=== PATIENT | male | born 1960 | race Caucasian/White ===

== ENCOUNTER → 2023-04-24 00:08 | Outpatient (REF) | payer MEDICARE, OTHER, SELFPAY | LOC: DHSLP 00:08 | PROVIDERS: ATTENDING PHYSICIAN Internal Medicine Critical Care Medicine; FAMILY PHYSICIAN Family Medicine | DX: G47.33 Obstructive sleep apnea (adult) (pediatric) (principal) | CPT/HCPCS: 95810 ==

== ENCOUNTER → 2023-05-07 | Outpatient (REF) | payer MEDICARE, OTHER, SELFPAY | LOC: DHSLP | PROVIDERS: ATTENDING PHYSICIAN Internal Medicine Critical Care Medicine; FAMILY PHYSICIAN Family Medicine | DX: G47.33 Obstructive sleep apnea (adult) (pediatric) (principal); G47.37 Central sleep apnea in conditions classified elsewhere | CPT/HCPCS: 95811 ==

== ENCOUNTER 2024-11-12 18:13 | Inpatient (IN) | payer MEDICARE, OTHER, SELFPAY ==
[2024-11-12] VITALS (29 sets, daily range): BP systolic 80–183; BP diastolic 29–120; BMI 32.3
[2024-11-12] MEDS: CORDARONE 103 MG IV (16:38)
[2024-11-12] MEDS: DIPRIVAN 60 MG IV (16:59)
[2024-11-12 17:03] LABS: Troponin I 0.079 ng/ml
[2024-11-12 17:04] LABS: Hematocrit 35.8 % (39.0-52.0); Hemoglobin 9.4 g/dL (13.0-18.0); Mean Corp Hgb Conc. 26.3 g/dL (33.0-37.0); Mean Corpuscular Volume 68.2 fL (80.0-94.0); Platelet Count 275 10^3/uL (130-400); Red Cell Dist. Width 23.7 % (11.5-14.5)
[2024-11-12 17:20] LABS: Absolute Neutrophils -Man Diff 6.4 10^3/uL (1.4-6.5)
[2024-11-12 17:21] LABS: Anisocytosis 2+; Normal RBC Morphology No; Platelets Checked Yes
[2024-11-12 17:23] LABS: Hypochromasia 3+; Microcytosis 3+; Poikilocytosis 2+; Polychromasia Slight
[2024-11-12 17:24] LABS: Acanthocytes 1+; Tear Drop Red Blood Cells Occasional; Total Cells Counted 100
--- NOTE | 2024-11-12 17:35 | HPS.HSE ---
Family Physician
-
Family Physician: Matthieu Nixon
Chief Complaint
-
hypoxic
V tach
History of Present Illness
64 year old with PMH for HLD, HTn, hypothyroidism presented to us diaphoretic and sob at home. patient was noted in V tach at home. EMS gave a dose of amio. since he got in the ER, he had couple episodes of V tach and unresponsiveness. patient
intubated in the ER and started on amiodarone. ROS limited as patient is intubated.
admitting for further management.
Medical History
Past Medical History
Past Medical History: Reports Other
Additional Past Medical History:
High cholesterol
Hypertension
Hypothyroidism
Occlusion of the left subclavian artery
Past Surgical History: Reports Other
Additional Past Surgical History:
Coronary artery bypass graft
Tonsillectomy
JIGMAKER-D implantation
Social History
Unable to obtain full social history at this time due to: Patient Intubation
Family History
Family History: Not pertinent
Allergies / Home Medications
Allergies reflects when Allergies were last updated in [facility].
Home Medications with original date entered in [facility]
Allergy/Medication List:
Allergies
Allergy/AdvReac Type Severity Reaction Status Date / Time
latex Allergy Mild Rash Verified 01/13/23 12:37
adhesive tape Allergy Rash Verified 01/13/23 12:37
Home Medications
atorvastatin 80 mg tablet 80 mg PO QPM High Cholesterol 12/20/22
dapagliflozin propanediol 10 mg tablet (Farxiga) 10 mg PO DAILY Heart Failure 12/20/22
eplerenone 25 mg tablet 25 mg PO QPM Heart Failure 12/20/22
ferrous sulfate 325 mg (65 mg iron) tablet 325 mg PO DAILY Supplement 12/20/22
rivaroxaban 20 mg tablet (Xarelto) 20 mg PO QPM Blood Clot Prevention/Tx 12/20/22
vitamin E 268 mg (400 unit) capsule 268 mg PO DAILY Supplement 12/20/22
loratadine 10 mg tablet (Claritin) 10 mg PO DAILY Allergies 12/21/22
bumetanide 1 mg tablet 0.5 mg PO DAILY Heart Failure 11/12/24
levothyroxine 137 mcg tablet (Synthroid) 137 mcg PO DAILY Thyroid 11/12/24
metoprolol succinate 50 mg tablet,extended release 24 hr (Toprol XL) 50 mg PO DAILY Heart Failure 11/12/24
potassium chloride 20 mEq tablet,extended release(part/cryst) 20 meq PO Q48H Electrolyte Repletion 11/12/24
Review of Systems
-
Unable to obtain full review of systems at this time due to: Patient Intubation
Physical Exam
Vital Signs
Vital Signs
Temp Pulse Resp BP Pulse Ox
99.1 F 91 24 111/83 97
11/12/24 16:29 11/12/24 16:29 11/12/24 16:29 11/12/24 16:29 11/12/24 16:29
Physical Exam
General: Well Developed, Well Nourished and No Apparent Distress
HEENT: NormoCephalic, Moist mucous membranes and Atraumatic
Respiratory: Clear
Cardiac: Irregular Rhythm; No Murmur or Rub
GI: Soft, Non Tender, Non Distended and Normal Bowel Sounds; No Organomegaly
Rectal: Deferred by Provider
Musculoskeletal: No Clubbing, No Cyanosis and No Edema
Skin: No Rash
Neuro: Nonfocal/grossly intact
Laboratory Results
-
11/12/24 16:26
Laboratory Results
Total Bilirubin Cancelled 11/12/24 16:26
AST Cancelled 11/12/24 16:26
ALT Cancelled 11/12/24 16:26
Alkaline Phosphatase Cancelled 11/12/24 16:26
Troponin I 0.079 ng/ml H* 08/15/25 16:26
Data Reviewed
-
Diagnostic Radiology: Report Reviewed by me
Lab Data: Labs Reviewed by me
Impression/Plan
-
#V tach arrest
#hxt of paroxysmal atrial fib
-chest x ray with Findings suspicious for congestive heart failure with interstitial and mild pulmonary edema. No evidence of pneumonia. Endotracheal tube tip at the level of the charito; proximal repositioning of 3 cm would be recommended.
-amiodarone drop
-initiated on heparin drip
-NG to suction
-cardiology consulted.
#anemia likely chronic
-hgb at 9.4, no active bleeding
-ctm
-obtain iron panel
-patient on ferrous sulfate as outpatient
#elevated trop NSTEMI
-trop 0.079
-EKG with atrial paced rhythm
-trend trop
# chronic heart failure with reduced EF. EF around 10-15% in 2022
-Monitor strict I/O
-Monitor daily weight
-Monitor renal function and electrolytes
-cardiology following
#Hypothyroidism
-obtain TSH with T4
-on levothyroxine
#DVT prophylaxis
-heparin
#CODE status
-full code
--- NOTE | 2024-11-12 17:47 | W.PN.UPDATE ---
Update Note
Progress Note Update
Called to assist in code situation.
Patient is in critical condition
Briefly, patient brought to the emergency department due to shortness of breath and ventricular tachycardia which was treated with IV amiodarone in the field. Early in his emergency room evaluation he again complained of marked dyspnea and was once
again found to be in ventricular tachycardia and lost consciousness, lost his pulse. Code was called. Resuscitative efforts included external cardioversion of ventricular tachycardia (rates in ventricular tachycardia approximately 160 bpm),
intravenous amiodarone, intravenous epinephrine. With cardioversion she would restore atrial and ventricular pacing with return of pulse but he would have continued salvos of recurrent hemodynamically unstable ventricular tachycardia (monomorphic
by telemetry monitoring) with loss of pulse requiring CPR and external cardioversion.
I interrogated the [employer] CONTROLLER defibrillator and diagnostic show multiple episodes of VT detected today November 12 but no other episodes of VT or VF noted in the arrhythmia log. VT detection is set at 170 bpm. VF detection is set at 210
bpm. I reprogrammed base pacing rate from 60->85 in an attempt to reduce the ventricular ectopy and I change the VT detection rate to 140 with 2 rounds of ATP followed by shock therapy. VF detection and therapy remains 210 bpm and shock therapy.
I also recommended IV lidocaine infusion which was begun while IV amiodarone is being maintained.
With these interventions ventricular arrhythmias have quieted down, at least for the time being.
Critical care time is 35 minutes
[2024-11-12 17:51] LABS: B.E. -17.2 mmol/L; O2 Saturation % 89.1 % (94-98); PCO2 49 mmHg (35-48); PO2 71 mmHg (83-108)
--- NOTE | 2024-11-12 17:53 | ED.GENMED ---
History of Present Illness
General
Chief Complaint: Heart Rate Problem
Source: patient, ambulance crew and other (Brother/family)
Exam Limitations: clinical condition
Time Seen by Provider: 11/12/24 16:27
History of Present Illness
History of Present Illness:
64-year-old male apparently had some diarrhea recently per the brother. Patient's only history of shortness of breath that started earlier today. Medics noted V. tach. He was given 150 mg of amiodarone. On arrival patient's only complaint was
shortness of breath. He was not in V. tach on arrival
Past History
Past History
ED Past Medical History: Arrthythmia, CAD, CHF, HTN, [place], Valvular disease, Psychiatric (Anxiety) and Other (Severe cardiomyopathy with an ejection fraction of 10 to 15%, severe obstructive sleep apnea, left bundle branch block,)
ED Past Surgical History: Cardiac and Tonsilectomy
Social History
Tobacco: Former smoker
Alcohol: None
Drug: None
Personal:
Living: with family
Family History
Family History: Other
Review of Systems
Review of Systems
All Other Systems: Not applicable
Constitutional: Denies fever
Respiratory: Reports trouble breathing
Phy Exam
Physical Exam
Physical Exam:
GENERAL: Alert and oriented. Mild tachypnea
EYE: Orbits normal.
NECK: Supple, no significant adenopathy.
ENT: Pharynx without erythema
CARDIAC: Regular rate and rhythm without any obvious murmurs. Pacer
LUNGS: Coarse rales and rhonchi
ABDOMEN: Soft, without focal tenderness or distention
NEUROLOGICAL: Alert and oriented , grossly non-focal
SKIN: Warm and dry, no rash or lesion, no discoloration, skin intact.
MUSCULOSKELETAL: Mild edema bilaterally
PSYCH: Normal and appropriate interaction.
Course
Orders/Labs/Results
Orders:
Orders
11/12/24 16:24
Electrocardiogram (*1) Urgent
Reason for Study: Syncope
EKG- Treatment ONCE
11/12/24 16:26
Complete Blood Count/With Diff Urgent
Manual Differential Urgent
Troponin I Urgent
11/12/24 16:37
Amiodarone [Cordarone] 150 mg .ROUTE .STK-MED ONE
11/12/24 16:46
Propofol 1,000,000 Mcg/100 ml [Diprivan] 1,000,000 mcg in 100 ml .ROUTE .STK-MED
11/12/24 16:48
Propofol [Diprivan] 60 mg IV NOW STA
11/12/24 16:53
CXR Port [CR Chest Portable - 1 View] Urgent
Comment:
Reason For Exam: post intubation
Reason Study Needs to be Portable: Patient Unstable
11/12/24 16:56
Amiodarone [Cordarone] 150 mg Dextrose 5%/Water 100 ml [D5w] 100 ml IV NOW
11/12/24 17:05
Basic Metabolic Panel Urgent
11/12/24 17:38
Arterial Blood Gas Urgent
%Oxygen/Room Air: 0
11/12/24 17:56
Admit/Transfer Patient As Directed
Co-Sign Provider:
Level of Care: Inpatient admission
Assign to:: ICU
Physician / Group: rishabh contreras
Diagnosis: v tach arrest
Reason for Hospitalization: v tach arrest
Expected length of stay greater than two midnights?: Yes
ELOS- Estimated Length of Stay in days: 3
I certify the patient meets the requirements for IP care: Yes
PRN Pain Medication Management As Directed
May give lesser potent ordered pain med per pt: Yes
preference::
Protocol:: Medication orders for pain may be administered in a
manner that supports deferring to patient preference
when the pt is:
- Requesting an ordered lesser potent pain medication.
Least to most potent pain medications are defined
as: acetaminophen < NSAID < tramadol < opioids
(morphine, oxycodone, hydromorphone).
- Requesting a lesser dose of the same medication IF
ORDERED.
- Requesting a less intrusive route of administration
if both routes are prescribed by the provider (PO <
IV).
11/12/24 17:58
Code Status As Directed
Resuscitation Status: Full Code
11/12/24 17:[address] Non Medication Order As Directed
Physician Order: PTT 6 hours after initial start of Heparin infusion
11/12/24 18:00
Heparin 71149 Units/250 ml 25,000 units in 250 ml IV PER PROTOCOL
Weight to be used for heparin protocol in kilograms (kg):: 105
Protocol:: Cardiac Tx/Acute Coronary
PTT Goal Range to be used:: PTT 73 to 111 seconds
Order type:: Initial
INITIAL Infusion Dose (UNITS/KG/hr) & then follow protocol:: 12 units/kg/hr
Infusion Dose in UNITS/hr & then follow protocol (UNITS/hr):: 1,000
INFUSION RATE in mL/hr & then follow protocol (mL/hr):: 10
PTT less than or equal to 64 seconds:: Increase rate by 200 units/hr (+ 2 mL/hr)
PTT 64.1 to 72.9 seconds:: Increase rate by 100 units/hr (+ 1 mL/hr)
PTT 73 to 111 seconds:: Target Range. No change in rate.
PTT 111.1 to 130.9 seconds:: Decrease rate by 100 units/hr (- 1 mL/hr)
PTT 131 to 199.9 seconds:: HOLD for 1 hr. Then decrease rate by 200 units/hr (- 2 mL/hr)
PTT greater than or equal to 200 seconds:: HOLD for 2 hrs & Notify Provider. Then decrease by 200 units/hr (-
2 mL/hr)
Lab follow-up:: Each change, PTT q6h until 2 consecutive are therapeutic. Then PTT
daily.
11/12/24 18:02
PTT Urgent
Comment: Obtain baseline before beginning heparin infusion if not already collected
Heparin Protocol- PTT Orders As Directed
PTT per Heparin protocol: -Obtain CBC and baseline PTT - if not already collected.
-Obtain PTT 6 hours from start of infusion. Then, every 6 hours until 2 consecutive
PTT's are therapeutic. Then, PTT Daily.
-With each rate change, obtain PTT every 6 hours until 2 consecutive PTT's are
therapeutic. Then, PTT Daily.
NG Tube [Gastrointestinal Tubes] As Directed
To suction?: Yes
Type of suction: Low intermittent
Notify MD As Directed
Notify physician if: PTT is greater than or equal to 200.
11/12/24 18:15
Heparin 91589 Units/250 ml 25,000 units in 250 ml IV PER PROTOCOL
Weight to be used for heparin protocol in kilograms (kg):: 105
Protocol:: Cardiac Tx/Acute Coronary
PTT Goal Range to be used:: PTT 73 to 111 seconds
Order type:: Initial
INITIAL Infusion Dose (UNITS/KG/hr) & then follow protocol:: 12 units/kg/hr
Infusion Dose in UNITS/hr & then follow protocol (UNITS/hr):: 1,000
INFUSION RATE in mL/hr & then follow protocol (mL/hr):: 10
PTT less than or equal to 64 seconds:: Increase rate by 200 units/hr (+ 2 mL/hr)
PTT 64.1 to 72.9 seconds:: Increase rate by 100 units/hr (+ 1 mL/hr)
PTT 73 to 111 seconds:: Target Range. No change in rate.
PTT 111.1 to 130.9 seconds:: Decrease rate by 100 units/hr (- 1 mL/hr)
PTT 131 to 199.9 seconds:: HOLD for 1 hr. Then decrease rate by 200 units/hr (- 2 mL/hr)
PTT greater than or equal to 200 seconds:: HOLD for 2 hrs & Notify Provider. Then decrease by 200 units/hr (-
2 mL/hr)
Lab follow-up:: Each change, PTT q6h until 2 consecutive are therapeutic. Then PTT
daily.
11/12/24 18:45
Acetaminophen [Tylenol/Feverall] 650 mg RECTAL Q4HPRN PRN
Bisacodyl [Dulcolax] 10 mg RECTAL [id number] PRN
Docusate W/Senna [Senokot-S] 1 tablet PO BIDPRN PRN
Polyethylene Glycol Powder [Miralax] 17 grams PO DAILYPRN PRN
11/12/24 18:45
CARDIOLOGY CONSULT Routine
Consulting Provider: Jamin Hernandez
Was physician already notified: Yes
Family Consultant Consult Routine
Consulting Provider: Allison Cannon
Was physician already notified: Yes
Activity As Directed
Activity Level: As Tolerated
Intake/ Output As Directed
Frequency: Per unit guidelines
Pneumatic Compression Sleeves As Directed
Type: Knee high
Vital Signs As Directed
Frequency: Per unit guidelines
Weight As Directed
Frequency: Daily
DX Deep Vein Thrombosis Video Routine
11/12/24 19:00
Flush (0.9% Sodium Chloride) [Flush (Nss)] See Dose Instructions IV PER PROTOCOL
11/12/24 22:30
Troponin I Q6H
11/13/24 04:30
Troponin I Q6H
11/13/24 Breakfast
NPO
Allow oral meds: No
Allow clear liquids: No
Basic Metabolic Panel IN AM
Cardiovascular Evaluation IN AM
Complete Blood Count/No Diff IN AM
Ferritin IN AM
Iron IN AM
TSH Reflex To Free T4 IN AM
Total Iron Binding IN AM
Vitamin B12 IN AM
11/14/24 06:00
Basic Metabolic Panel IN AM
Complete Blood Count/No Diff IN AM
Complete Blood Count/No Diff Q2D
Comment: Notify MD if platelet count is <130,000 or decreases by 50% from baseline
11/15/24 06:00
Basic Metabolic Panel IN AM
Complete Blood Count/No Diff IN AM
11/16/24 06:00
Basic Metabolic Panel IN AM
Complete Blood Count/No Diff IN AM
Complete Blood Count/No Diff Q2D
Comment: Notify MD if platelet count is <130,000 or decreases by 50% from baseline
11/18/24 06:00
Complete Blood Count/No Diff Q2D
Comment: Notify MD if platelet count is <130,000 or decreases by 50% from baseline
11/20/24 06:00
Complete Blood Count/No Diff Q2D
Comment: Notify MD if platelet count is <130,000 or decreases by 50% from baseline
11/22/24 06:00
Complete Blood Count/No Diff Q2D
Comment: Notify MD if platelet count is <130,000 or decreases by 50% from baseline
11/24/24 06:00
Complete Blood Count/No Diff Q2D
Comment: Notify MD if platelet count is <130,000 or decreases by 50% from baseline
11/26/24 06:00
Complete Blood Count/No Diff Q2D
Comment: Notify MD if platelet count is <130,000 or decreases by 50% from baseline
11/28/24 06:00
Complete Blood Count/No Diff Q2D
Comment: Notify MD if platelet count is <130,000 or decreases by 50% from baseline
Abnormal Lab Results
11/12/24 11/12/24 11/12/24
16:26 17:05 17:38
Hgb 9.4 L g/dL
(13.0-18.0)
Hct 35.8 L %
(39.0-52.0)
MCV 68.2 L fL
(80.0-94.0)
MCH 17.9 L pg
(27.0-31.0)
MCHC 26.3 L g/dL
(33.0-37.0)
RDW 23.7 H %
(11.5-14.5)
Band Neutrophils 4 H %
(0-3)
APTT
pH 7.03 L*
(7.35-7.45)
pCO2 49 H mmHg
(35-48)
pO2 71 L mmHg
(83-108)
HCO3 12.9 L* mmol/L
(21-28)
ABG O2 Sat (Measured) 89.1 L %
(94-98)
Sodium 128 L mmol/L
(135-145)
Carbon Dioxide 8 L* mmol/L
(22-30)
Creatinine 1.7 H mg/dL
(0.7-1.3)
Glucose 273 H mg/dl
(70-99)
Calcium 8.2 L mg/dl
(8.4-10.2)
Troponin I 0.079 H* ng/ml
11/12/24
18:02
Hgb
Hct
MCV
MCH
MCHC
RDW
Band Neutrophils
APTT 36.7 H Sec
(23.4-35.0)
pH
pCO2
pO2
HCO3
ABG O2 Sat (Measured)
Sodium
Carbon Dioxide
Creatinine
Glucose
Calcium
Troponin I
11/12/24 18:04
11/12/24 18:04
Vital Signs
Initial and Last Documented VS:
Initial Vital Signs
Pulse Resp BP Pulse Ox
97 17 111/83 90
11/12/24 16:22 11/12/24 16:22 11/12/24 16:22 11/12/24 16:22
Last Documented Vital Signs
Temp Pulse Resp BP Pulse Ox
99.1 F 98 20 113/77 96
11/12/24 16:29 11/12/24 18:15 11/12/24 18:15 11/12/24 18:15 11/12/24 19:00
Procedures
Intubations
Procedure completed by: Myself
Method of Intubation: glidescope
Tube size (cm): 7.5
Placement confirmed by: auscutation, CXR, capnography and placement corrected
Breath sounds after intubation: equal
*Radiology
Radiology exam reviewed: preliminary read by ED provider (CHF. Just at the charito) and radiology read reviewed (CHF. At the charito.)
*Pulse Oximetry
SaO2: 97
Nasal Cannula flow liters per minute: 6
Patient hypoxic: yes
*EKG
Interpreted by ED Provider?: Yes
Interpretation: abnormal
Comparison EKG: changes noted
Heart Rate: 97
Rate: normal
Rhythm: other (Atrial sensed ventricular paced)
*Venetian Blind Machine Operator Interpretation
Rate: tachycardiac
Interpretation: abnormal
Heart Rate: 140
Rhythm: other (VT)
*Critical Care Note
Total Time (30-74mins, 75-104mins- exclusive of procedures): 55
Update Note
Update Note:
Patient went into recurrent episodes of V. tach while in the ER. Cardiology was called immediately. He was given more amiodarone. EP was called. Patient had to be intubated shortly after arrival for unresponsiveness and V. tach. He was
intubated with propofol and rocuronium. Intubation went smoothly. Multiple phone calls to family including [id number] and brother. I did leave a message with his primary pipe fittings molder Dr. Cardona. Per cardiology and hospitalist start heparin
but no bolus. We will also try to get his blood pressure up some to give him better sedation
Prior to going up patient was rechecked with family in the room. Paced rhythm. From a cardio vascular standpoint appeared more stable.
ED Attending Note
-
Portions of this chart may have been created with voice recognition software.� Occasional wrong word or��sound alike� substitutions may have occurred due to the inherent limitations of voice recognition software.
Discharge Plan
Departure
Patient Disposition: Admit
Date of Disposition: 11/12/24
Time of Disposition: 17:46
Presentation/result/management discussed w/ accepting MD/DO: Cardiology
Discharge Problem:
V. tach storm, CHF, Anemia
Interventions
Interventions:
*Risk Screen - Suicide Last Done: 11/12/24 16:33
*General Assessment Last Done: 11/12/24 16:29
*Neglect/Abuse Screening Last Done: 11/12/24 16:33
*ED- Fall Risk Assessment Last Done: 11/12/24 16:33
*ED COVID-19 Vaccine History Last Done: 11/12/24 16:33
*Nursing Disposition Last Done: 11/12/24 18:37
ED- Cardiac Assessment Last Done: 11/12/24 16:52
ED- Pulmonary Assessment Last Done: 11/12/24 16:52
Discharge Date and Time
Discharge Date/Time: 11/12/24 19:01
[2024-11-12 17:59] LABS: HCO3 12.9 mmol/L (21-28)
[2024-11-12 18:02] LABS: Blood Urea Nitrogen 11 mg/dl (9-20); Calcium 8.2 mg/dl (8.4-10.2); Carbon Dioxide 8 mmol/L (22-30); Chloride 101 mmol/L (98-107); Estimated Creatinine Clearance 54 ml/min; Glucose 273 mg/dl (70-99); Sodium 128 mmol/L (135-145); eGFR 44.46
--- NOTE | 2024-11-12 18:04 | W.PN.UPDATE ---
Update Note
Progress Note Update
I could not get any information du to sedated and intubated patient
Information gathered by chart review and speaking with the ER staff.
This note serves as an addendum to the H&P by provider relations coordinator YANNICK�
Deirdre PARIS
HPI
62M HX ICM, CAD, chronic severe HFrEF with LVEF 10-15, GROUND WIRER D device implant , Prx AF, HTN, central sleep apnea, ETOH use disorder, valvulopathy, HX VT storm, MRSA sepsis , septic & cardiogenic shock seen at ER
[facility]
- Eval for SoB and diaphoresis
- found Pox low 80s on RA in VT per EMS
- associated multiple syncope s/p IV Amiodarone
Relevant� VS
Temp Pulse Resp BP Pulse Ox
99.1 F 91 24 111/83 97
11/12/24 16:29 11/12/24 16:29 11/12/24 16:29 11/12/24 16:29 11/12/24 17:55
PE
GEN: intubated and sedated
HEENT: supple, anicteric, mmm
LUNGS: CTA, no wheezes/rales
CV: S1/S2, 1/6 systLSB, no gallop
ABD: soft, BS+, NT/ND
EXT: No edema
NEURO: sedated
SKIN: No rash
Relevant� data
11/12/24 11/12/24 11/12/24
16:26 17:05 17:38
Hgb 9.4 L
Hct 35.8 L
MCV 68.2 L
MCH 17.9 L
MCHC 26.3 L
RDW 23.7 H
Band Neutrophils 4 H
pH 7.03 L*
pCO2 49 H
pO2 71 L
HCO3 12.9 L*
ABG O2 Sat (Measured) 89.1 L
Sodium 128 L
Carbon Dioxide 8 L*
Creatinine 1.7 H
Glucose 273 H
Calcium 8.2 L
Troponin I 0.079 H*
EKG :
Atrial-sensed ventricular-paced rhythm
ABNORMAL ECG
WHEN COMPARED WITH ECG OF 23-Dec-2022 09:47,
VENT. RATE HAS INCREASED by 24 bpm
Confirmed by SILVANA MARTIN MD ([id number]) on 11/12/2024 5:27:25 PM
12/23/22 TTE
EF 5 to 10%, mild MR, mod TR, pulmonary artery systolic pressure 50 mmHg
November 2016 CC
- Normal left main, sequential 80 and 95% mid LAD 100% after second diagonal, fill left to left and right to left collaterals, nondominant circumflex OM1 80% proximal, OM 2 95% proximal, distal circumflex 100%, RCA 60% mid, 50% distal, 90% distal
occlusion posterolateral, 70% proximal PDA, LV gram, cardiac index 1.7, pulmonary capillary wedge 38
November 2016 TTE
EF 5 to 10%, mild to moderate MR, mild TR, pulmonary artery systolic pressure 35-40 mmHg
Last hospitalist admission: Date of Admission: 12/20/22 - Date of Discharge: 12/27/22
Discharge Diagnosis/Procedures:
Septic plus cardiogenic shock
MRSA Bacteremia.
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
Acute on chronic severe HFrEF
VT storm.
ICM
CAR[place]
CAD
Hypertension
HLD
HX ETOH
HX Prx AF
Thrombocytopenia.
Obesity.
HX central GUILLERMO
Hyponatremia.
Excessive somnolence disorder, periodic limb movement disorder.
Seborrheic dermatitis.
ASSESSMENT & PLAN
Multiple syncope episodes, episodes of unresponsiveness due to VT storm and arrest
- Hypotensive - presumed cardiogenic shock
- s/p advanced CPR and intubated and on vent to protect AW
- HX VT storm
- Has GROUND WIRER D device implant - reprogrammed by EP card at ER
- Underlying severe chr HFrEF
- c/w sedation
- cont. Amiodarone gtt
- Dobutamine gtt if MAP < 65
- Heparin gtt in place of Xarelto
- will need Small bore NGT place,ent for PO Meds
- to CV ICU
- ICU consult
- DCA card consulted
Chronic severe HFrEF with 10-15% LVEF
- IV Lasix 40 mg bid
- Monitor strict I/O
- Monitor daily weight
- Monitor renal function and electrolytes
- Hold oral GDMT ( metoprolol succinate 25 mg p.o. daily + Farxiga 10 mg daily + Eplerenone 25 mg daily)
- NGT for CV ICU
HX Paroxysmal AF HX
- Hold metoprolol due to hypotension
- Heparin gtt without bolus on COMPUTER SUPPORT TECHNICIAN Xarelto 10 mg p.o. daily
Hypothyroidism
- on Levothyroxine when NGT is available
Obesity,
HX central sleep apnea, excessive somnolence disorder, periodic limb movement disorder.
on chr CPAP HS
- currently on Vent
HX Septic plus cardiogenic shock HX due to MRSA Bacteremia in Nov 2022 with suspected endocarditis/pacemaker infection.
DVT Px:
Full code
CV IVU
Case dw DCA card and ER attd
Total Critical Care Time_50____ minutes. I was immediately available to the patient and staff. I personally examined, reviewed labs, diagnostic images/reports, interpretations, treatment plans, discussed patient care with other providers and
family or caregivers (if patient is unable to make decisions), entered orders as appropriate and documented the medical record.
--- NOTE | 2024-11-12 18:14 | CON.CAR ---
Consultation
Consultation Request
Date/Time Consultation Requested: 11/12/2024 16: 40
Date/Time Consultation Performed: 11/12/2024 16: 45
Requesting Provider: Mp
Performing Provider: David
Reason for Consultation: Cardiac arrest with ventricular tachycardia
Medical History
-
History of Present Illness:
Jamin has past medical history significant for NSTEMI with multivessel coronary artery disease status post CABG times 03 December 2016, ischemic cardiomyopathy with EF 10 to 15%, heart failure with reduced ejection fraction, VT, left bundle branch
block, PAF, hypertension, hyperlipidemia, mild mitral regurgitation and follows with [facility]ology. His last admission here was in 2022 for VT storm and sepsis. He reportedly walks daily without issues. Today he was noted to have shortness of
breath and had cardiac arrest. He was ventricular tachycardia storm in the ER. He was intubated and ACLS protocol was performed. He received multiple rounds of epinephrine as well as IV amiodarone and then IV lidocaine. He subsequent return to
sinus rhythm. Of note his ICD was programmed to increase his base pacing rate to 90 bpm and ventricular tachycardia zone was decreased to allow device to shock patient.
PMH:
Multivessel CAD
NSTEMI 11/2016
s/p CABG x 5 SKY-LAD, Radial-PDA, SVG->D1->OM1->PLS) Nov 2016 TU
Ischemic cardiomyopathy
s/p Medtronic BiVICD
Heart failure reduced ejection fraction
VT
LBBB
Paroxysmal Atrial fibrillation
Hypertension
Hyperlipidemia
Mitral regurgitation
Hypothyroidism
Former smoker
Family history of premature CAD- father had an RI at age 39
Past Medical History
Past Medical History: Other (See HPI)
Past Surgical History: Cardiac (CABG x ) and Tonsilectomy
Social History
Tobacco: Former Smoker
Alcohol: Daily (several beers a day)
Drug: None
Personal:
Family History
Family History: Early CAD (father RI at 39), Cancer (father lung CA ) and Other (Mother has HTN, HLD)
Allergies / Home Medications
Allergy/AdvReac Type Severity Reaction Status Date / Time
latex Allergy Mild Rash Verified 01/13/23 12:37
adhesive tape Allergy Rash Verified 01/13/23 12:37
�Medication �Instructions �Recorded �Confirmed �Type
atorvastatin 80 mg tablet 80 mg PO QPM High Cholesterol 12/20/22 11/12/24 History
dapagliflozin propanediol 10 mg 10 mg PO DAILY Heart Failure 12/20/22 11/12/24 History
tablet (Farxiga)
eplerenone 25 mg tablet 25 mg PO QPM Heart Failure 12/20/22 11/12/24 History
ferrous sulfate 325 mg (65 mg 325 mg PO DAILY Supplement 12/20/22 11/12/24 History
iron) tablet
rivaroxaban 20 mg tablet (Xarelto) 20 mg PO QPM Blood Clot 12/20/22 11/12/24 History
Prevention/Tx
vitamin E 268 mg (400 unit) capsule 268 mg PO DAILY Supplement 12/20/22 11/12/24 History
loratadine 10 mg tablet (Claritin) 10 mg PO DAILY Allergies 12/21/22 11/12/24 History
bumetanide 1 mg tablet 0.5 mg PO DAILY Heart Failure 11/12/24 11/12/24 History
levothyroxine 137 mcg tablet 137 mcg PO DAILY Thyroid 11/12/24 11/12/24 History
(Synthroid)
metoprolol succinate 50 mg 50 mg PO DAILY Heart Failure 11/12/24 11/12/24 History
tablet,extended release 24 hr
(Toprol XL)
potassium chloride 20 mEq 20 meq PO Q48H Electrolyte 11/12/24 11/12/24 History
tablet,extended release(part/cryst) Repletion
Review of Systems
-
Unable to obtain full review of systems at this time due to: Patient Intubation
Physical Exam
Vital Signs
Temp Pulse Resp BP Pulse Ox
99.1 F 91 24 111/83 97
11/12/24 16:29 11/12/24 16:29 11/12/24 16:29 11/12/24 16:29 11/12/24 17:55
General: Intubated and unresponsive
Neck: Supple, no JVD, HJR, carotids +2 B/L, no bruits bilaterally.
Heart: Non displaced PMI, RRR, no murmurs, No S3, S4, no rubs.
Lungs: Scattered rhonchi
Abdomen: Normal bowel sounds, soft, non-tender, non-distended.
Extremities: No clubbing, cyanosis or edema bilaterally.
Neuro: Intubated and unresponsive
Lab Results
Troponin I 0.079 ng/ml H* 11/12/24 16:26
Impression / Plan
-
Primary insulation estimator: Dr. Cardona ([facility])
Impression:
Status postcardiac arrest with ventricular tachycardia
Ischemic cardiomyopathy
Acute on chronic CHF
Multivessel CAD status post CABG 2016 -at [facility]
Staph aureus bacteremia 2022 with associated VT storm
Hypertension
Dyslipidemia
Alcohol use
PAF
Sepsis
BSM BIVICD
Thrombocytopenia, platelets 63 K on December 21
Prior cardiac history during 2022 admission
[employer]: WATER TENDER-D, implanted May 2017
VT zone 170 bpm, monitor only
VF zone greater than 200 bpm ATP followed by 41 J, 41 J, 41 J x 6
Programmed DDD, lower rate limit 60 ppm, upper tracking rate 130 ppm
Catheterization November 2016: Normal left main, sequential 80 and 95% mid LAD 100% after second diagonal, fill left to left and right to left collaterals, nondominant circumflex OM1 80% proximal, OM 2 95% proximal, distal circumflex 100%, RCA 60%
mid, 50% distal, 90% distal occlusion posterolateral, 70% proximal PDA, LV gram, cardiac index 1.7, pulmonary capillary wedge 38
Echo November 2016: EF 5 to 10%, mild to moderate MR, mild TR, pulmonary artery systolic pressure 35-40 mmHg
TTE 12/23/22: EF 5 to 10%, mild MR, mod TR, pulmonary artery systolic pressure 50 mmHg
Plan:
Patient presented after cardiac arrest. Cardiology consulted emergently for ventricular tachycardia. Patient received epinephrine, amiodarone, lidocaine. Device was changed to allow AV pacing at heart rate of 90 and patient had return of pulse.
Will continue IV amiodarone and IV lidocaine. Will need to review records from [facility]. Might need ischemic evaluation depending on neurologic recovery after cardiac arrest and prolonged code
We use IV heparin for Xarelto if with history of A-fib
Will need IV diuresis for CHF if blood pressure allows
Participated in code with ACLS protocol. Total critical care time 70 minutes so far. Discussed with patient's sister by phone.
Data Reviewed
-
EKG: Tracing Personally Visualized and interpreted
Radiology: Report Reviewed by me
Medical Tests (Nuc Med, Echo etc): Report Reviewed by me
Labs: Labs Reviewed by me
Old Records: Reviewed
[2024-11-12 18:19] LABS: APTT 36.7 Sec (23.4-35.0)
[2024-11-12] MEDS: CORDARONE 518 MG IV (19:30)
--- NOTE | 2024-11-12 19:30 | PTCARENOTE ---
pt to ICU from ER, arrives on MV 100% Fi02, Sat 100%, PIV x 3 WNL- Lidocaine gtt/amio infusing per MAY. LLE IO WNL. pt with myoclonic jerking movements, B/L pupils 2S, no other reflexes noted, no w/d to pain, Dr Cannon & BDoughertyNP at bedside
discussing plan, pt for [employer] placement & ceribell, care ongoing.
--- NOTE | 2024-11-12 19:55 | W.PN.UPDATE ---
Update Note
Progress Note Update
Procedure Note: Arterial Line�
� Right Wrist Arrow 20 (06/01)�
Diagnosis:��cardiac arrest
IV Line Comments: Uneventful Procedure�
Samson's test completed pre-procedure: Yes�
A-Line Comments: Sterile technique as per standard protocol, Ultrasound guided insertion�
Functioning A-line in situ: Yes�
A-line Insertion Start Time:��1929
A-line in at:��1944
[2024-11-12] MEDS: HEPARIN 25000 UNITS/250 ML IV (19:56)
[2024-11-12 19:58] LABS: B.E. -12.5 mmol/L; O2 Saturation % 98.6 % (94-98); PCO2 39 mmHg (35-48); PO2 115 mmHg (83-108)
[2024-11-12] MEDS: SUBLIMAZE 50 MCG IV (20:00)
[2024-11-12 20:02] LABS: HCO3 14.9 mmol/L (21-28)
[2024-11-12 20:06] LABS: Hematocrit 38.7 % (39.0-52.0); Hemoglobin 10.1 g/dL (13.0-18.0); Mean Corp Hgb Conc. 26.1 g/dL (33.0-37.0); Mean Corpuscular Volume 69.9 fL (80.0-94.0); Platelet Count 306 10^3/uL (130-400); Red Cell Dist. Width 23.9 % (11.5-14.5)
[2024-11-12 20:25] LABS: ALT (SGPT) 307 U/L (0-50); AST (SGOT) 326 U/L (17-59); Albumin 4.1 g/dl (3.5-5.0); Alkaline Phosphatase 87 U/L (38-126); Blood Urea Nitrogen 13 mg/dl (9-20); Calcium 7.4 mg/dl (8.4-10.2); Carbon Dioxide 14 mmol/L (22-30); Chloride 102 mmol/L (98-107); Estimated Creatinine Clearance 42 ml/min; Glucose 235 mg/dl (70-99); Magnesium 2.2 mg/dl (1.6-2.3); Potassium 4.8 mmol/L (3.5-5.1); Sodium 132 mmol/L (135-145); Total Protein 6.4 g/dl (6.3-8.2); eGFR 32.63
[2024-11-12] MEDS: SODIUM BICARBONATE 50 MEQ IV (20:32)
[2024-11-12] MEDS: SODIUM BICARBONATE 1150 MEQ IV (20:58)
--- NOTE | 2024-11-12 21:34 | RESPNOTE ---
ETT advanced to 25 at the lip per APPLICATION SECURITY CONSULTANT
[2024-11-12] MEDS: VERSED 2 MG IV ×2 (21:43→22:56)
[2024-11-12] MEDS: OFIRMEV 100 IV (22:55)
[2024-11-12 23:21] LABS: B.E. -8.1 mmol/L; O2 Saturation % 98.3 % (94-98); PCO2 26 mmHg (35-48); PO2 397 mmHg (83-108)
[2024-11-12 23:22] LABS: HCO3 15.7 mmol/L (21-28)
[2024-11-13 00:07] LABS: Troponin I 12.800 ng/ml
--- NOTE | 2024-11-13 00:56 | W.PN.UPDATE ---
Update Note
Progress Note Update
Overnight update
Patient remains unresponsive, + gag, pupils = (midline, +2, sluggish response, no corneal reflex), Head CT = negative, continues with myoclonic jerks (unresponsive to versed and fentanyl), �Ceribell showing no significant seizure burden.�
ETT repositioned, ABG improving 7.39/ /397�
Maintain normothermic overnight( schedule Tylenol, perri hugger PRN), hemodynamically stable; continues on lidocaine and amiodarone drip �
Labs: Metabolic acidosis improving; Concerning labs: LA 5.8 to 6.4, Trops 0.079 to 12.8,�CR 1.7 to 2.2.
Brother updated
--- NOTE | 2024-11-13 01:20 | PTCARENOTE ---
CTH complete, turned, skin care, cooling blanket applied, repositioned. Ceribell reapplied.
[2024-11-13] MEDS: NOVOLOG FLEXPEN 2 UNITS SC (01:26)
[2024-11-13 02:55] VITALS: BMI 32.3
[2024-11-13 02:57] LABS: APTT 173.1 Sec (23.4-35.0)
--- NOTE | 2024-11-13 04:00 | PTCARENOTE ---
pt with increased ectopy, HR up to 120, myoclonic movements constant, RR 30-40, agitated, BDoughertyNP at bedside, 10mg IV valium/1500mg Depacon IV given with improvement. care ongoing.
[2024-11-13] MEDS: VALIUM INJECTION 10 MG IV (04:02)
[2024-11-13] MEDS: DEPACON 65 MG IV (04:19)
[2024-11-13 04:39] LABS: B.E. -7.6 mmol/L; O2 Saturation % 99.4 % (94-98); PCO2 24 mmHg (35-48); PO2 334 mmHg (83-108)
[2024-11-13 04:41] LABS: HCO3 15.6 mmol/L (21-28)
[2024-11-13 04:58] LABS: Hematocrit 33.9 % (39.0-52.0); Hemoglobin 9.2 g/dL (13.0-18.0); Mean Corp Hgb Conc. 27.1 g/dL (33.0-37.0); Mean Corpuscular Volume 66.7 fL (80.0-94.0); Platelet Count 195 10^3/uL (130-400); Red Cell Dist. Width 23.3 % (11.5-14.5)
[2024-11-13 05:12] LABS: Troponin I 9.310 ng/ml
[2024-11-13] MEDS: SUBLIMAZE 50 MCG IV (05:19)
[2024-11-13] MEDS: OFIRMEV 100 IV ×2 (05:20→10:23)
[2024-11-13 05:42] LABS: ALT (SGPT) 343 U/L (0-50); AST (SGOT) 351 U/L (17-59); Albumin 3.7 g/dl (3.5-5.0); Alkaline Phosphatase 72 U/L (38-126); Blood Urea Nitrogen 22 mg/dl (9-20); Calcium 7.4 mg/dl (8.4-10.2); Carbon Dioxide 17 mmol/L (22-30); Chloride 102 mmol/L (98-107); Estimated Creatinine Clearance 40 ml/min; Glucose 203 mg/dl (70-99); HDL Cholesterol 27 mg/dl; Iron 30 ug/dl (49-181); LDL Cholesterol, Calculated 50 mg/dl; Potassium 3.5 mmol/L (3.5-5.1); Sodium 132 mmol/L (135-145); Total Protein 6.0 g/dl (6.3-8.2); Very Low Density Lipoprotein 13 mg/dl (0-30); eGFR 30.93
[2024-11-13 05:50] VITALS: BMI 32.5
[2024-11-13 05:51] LABS: Total Iron Binding Capacity 352 ug/dl (261-462)
[2024-11-13] MEDS: NOVOLOG FLEXPEN-MODERATE RESISTANCE 1 UNITS SC (06:29)
[2024-11-13 06:30] LABS: Ferritin 105.0 ng/ml (17.9-464.0)
[2024-11-13 06:39] LABS: Glucose - Point of Care 161 mg/dl (70-99)
[2024-11-13 06:45] LABS: Vitamin B12 924 pg/ml (239-931)
--- NOTE | 2024-11-13 07:09 | CON.INTV ---
Consultation
Consultation Request
Date/Time Consultation Requested: 11/12/2024
Date/Time Consultation Performed: 11/13/2024
Medical History
-
Chief Complaint: Weakness, diaphoresis
History of Present Illness:
Patient is a 64-year gentleman who is currently intubated, mechanically ventilated. History mostly obtained from chart review and discussion with other healthcare providers. Reportedly patient has a history of multivessel coronary artery disease
status postcoronary artery bypass graft and severe ischemic cardiomyopathy with a EF of 10 to 15%. Patient is s/p CLINICAL ASSISTANT-D and also has prior history of ventricular tachycardia. Today patient was experience shortness of breath and EMS was called and
patient was noted to be in ventricular tachycardia. He was given amiodarone in the field and was brought to the emergency room. In the emergency room patient felt diaphoretic, had episode of syncope and noted to be in pulseless ventricular
tachycardia. CPR was initiated, patient was emergently intubated and ACLS was performed. Patient had multiple rounds of epinephrine, IV amiodarone and later IV lidocaine. He was externally cardioverted. Cardiology service evaluated the patient
emergently and his ICD was interrogated and reprogrammed with no subsequent episodes. Patient subsequently was admitted to ICU and reeling machine operator consult was requested for further input.
PMH:
Multivessel CAD
NSTEMI 11/2016
s/p CABG x 5 SKY-LAD, Radial-PDA, SVG->D1->OM1->PLS) Nov 2016 TUHIschemic cardiomyopathy
s/p Medtronic BiVICDHeart failure reduced ejection fraction
VT
LBBB
Paroxysmal Atrial fibrillation
Hypertension
Hyperlipidemia
Mitral regurgitation
Hypothyroidism
Former smoker
Family history of premature CAD- father had an VT at age 39
Past Medical History
Past Medical History: Other (See HPI)
Past Surgical History: Cardiac (CABG x ) and Tonsilectomy
Social History
Tobacco: Former Smoker
Alcohol: Daily (several beers a day)
Drug: None
Personal:
Family History
Family History: Early CAD (father VT at 39), Cancer (father lung CA ) and Other (Mother has HTN, HLD)
Allergies / Home Medications
Allergies
Allergy/AdvReac Type Severity Reaction Status Date / Time
adhesive tape Allergy Rash Verified 01/13/23 12:37
latex Allergy Rash Verified 11/12/24 22:04
Home Medications
�Medication �Instructions �Recorded �Confirmed �Last Taken �Type
atorvastatin 80 mg tablet 80 mg PO QPM High Cholesterol 12/20/22 11/12/24 12/19/22 History
dapagliflozin propanediol 10 mg 10 mg PO DAILY Heart Failure 12/20/22 11/12/24 Unknown History
tablet (Farxiga)
eplerenone 25 mg tablet 25 mg PO QPM Heart Failure 12/20/22 11/12/24 12/19/22 History
ferrous sulfate 325 mg (65 mg 325 mg PO DAILY Supplement 12/20/22 11/12/24 12/20/22 History
iron) tablet
rivaroxaban 20 mg tablet (Xarelto) 20 mg PO QPM Blood Clot 12/20/22 11/12/24 12/19/22 History
Prevention/Tx
vitamin E 268 mg (400 unit) capsule 268 mg PO DAILY Supplement 12/20/22 11/12/24 12/20/22 History
loratadine 10 mg tablet (Claritin) 10 mg PO DAILY Allergies 12/21/22 11/12/24 Unknown History
bumetanide 1 mg tablet 0.5 mg PO DAILY Heart Failure 11/12/24 11/12/24 Unknown History
levothyroxine 137 mcg tablet 137 mcg PO DAILY Thyroid 11/12/24 11/12/24 Unknown History
(Synthroid)
metoprolol succinate 50 mg 50 mg PO DAILY Heart Failure 11/12/24 11/12/24 Unknown History
tablet,extended release 24 hr
(Toprol XL)
potassium chloride 20 mEq 20 meq PO Q48H Electrolyte 11/12/24 11/12/24 Unknown History
tablet,extended release(part/cryst) Repletion
Review of Systems
-
Unable to Obtain full review of systems at this time due to: Patient Intubation
Vitals / Labs / Diagnostic Testing
Vital Signs
Temp Pulse Resp BP Pulse Ox
99 F 91 23 122/86 100
11/13/24 06:00 11/13/24 06:30 11/13/24 06:30 11/12/24 19:15 11/13/24 06:30
Lab Data
11/13/24 04:27
11/13/24 04:27
Laboratory Results
11/12/24 11/12/24 11/12/24
17:38 18:02 19:40
APTT 36.7 H
pH 7.03 L* 7.19 L*
pCO2 49 H 39
pO2 71 L 115 H
HCO3 12.9 L* 14.9 L*
O2 Delivery Level
11/12/24 11/13/24 11/13/24
23:17 02:01 04:27
APTT 173.1 H*
pH 7.39 7.42
pCO2 26 L 24 L
pO2 397 H 334 H
HCO3 15.7 L* 15.6 L*
O2 Delivery Level
Diagnostic Testing:
Physical Exam
-
HEENT: Normocephalic
Cardiovascular: S1/S2
Respiratory: Rales
GI: Soft and Non Distended
Neurology: Other (Unresponsive, myoclonic jerks noted. Eyes open, seizure-like activity is noted.)
Skin: Warm
General: Comfortable
Assessment
-
#1. Cardiac arrest, in the setting of VT storm
-Ventricular tachycardia status post IV amiodarone in the field, subsequently syncope and cardiac arrest in the emergency room, s/p CPR, cardioversion, intravenous amiodarone, intravenous epinephrine, subsequently started on IV lidocaine as well
- Known history of severe ischemic cardiomyopathy, LVEF 10 to 15%, s/p CLINICAL ASSISTANT-D since 05/2017
- Patient currently on amiodarone and lidocaine infusion. Magnesium and potassium normal
- Cardiology service on case
- CLINICAL ASSISTANT-D interrogated and adjustments made, no further pulseless V. tach since.
#2. Concern for anoxic encephalopathy/Seizures
- Patient has myoclonic jerks, however worsened overnight
- Target normothermia
- Essentially unresponsive
- Initial CT head is unremarkable
- Continue to stay off sedation, normalize pH and electrolytes
- EEG monitoring this morning suggestive of seizures
- Patient very tachycardic, significant myoclonus, will give Versed 4 mg IV stat and initiate Versed infusion, await neurology recommendations
- Neurology consult
- Poor prognosis, suspect underlying significant anoxic injury.
#3. Acute on chronic heart failure with reduced ejection fraction, LVEF 10 to 15%
- In the setting of cardiac arrest and decreased cardiac output
- Patient doing better with higher PEEP with improving chest x-ray and oxygenation
#4. Acute hypoxic respiratory failure with Pulmonary edema
- Due to decompensated heart failure, in the setting of cardiac arrest
- Currently intubated, mechanically ventilated, oxygenation improving with higher PEEP
- Begin diuresis as tolerated by blood pressure
#5. Metabolic acidosis with elevated lactate
- In the setting of cardiac arrest, admission pH 7.03/49.
- Elevated lactate 5.8 on admission, most recent 4.6
- Continue hyperventilation, s/p sodium bicarbonate push and lately has been on sterile water with 3 A of bicarb infusing at 75 mL/h
- ABG this morning 7.42/24/334. Serum bicarb level improving
#6. h/o CAD with elevated troponin. ACS vs related to Cardiac arrest/Defibrillation
- Known history of multivessel coronary artery disease with severe LV dysfunction, s/p CABG in 2017
- Continue heparin drip, add aspirin
#7. Acute kidney injury.
- Creatinine continues to rise, 1.7, then 2.2, then 2.3 this morning
- Oligoanuric
- Suspect this is in the setting of cardiac arrest and hypoperfusion
- At risk of developing multiorgan failure
#8. Abnormal LFTs, concern for shock liver
- Monitor liver function test closely
#9. Pulmonary hypertension
- Group II in the setting of severe systolic cardiomyopathy. Moderate mitral regurgitation and moderate to severe tricuspid regurgitation noted
- Right heart cath in 2017, mean pulmonary pressure 44 with a pulmonary capillary wedge pressure of 38.
#10. Hyponatremia
- Admission sodium 128
- Suspect hyponatremia in the setting of congestive heart failure, hypervolemia
- Sodium level continues to improve, 132 this morning
Other medical diagnoses:
- Hypertension, hyperlipidemia
- Paroxysmal atrial fibrillation
- Thrombocytopenia
- Prior history of Staph aureus bacteremia with associated VT storm in 2022
Critical Care time 65 mins -- The patient is admitted for acute critical illness for the treatment of vital organ failure and/or prevention of further life-threatening conditions. Total care includes time spent in review of history, physical exam,
medications, hemodynamic/ventilator parameters, laboratory data, imaging and discussion with house staff, pharmacy, respiratory therapy, restorer paper and prints, and nursing.
Data:
CT Head 10/2024: Unremarkable
Chest X ray 10/2024: Pulmonary edema
KIA 11/2022: Left ventricle is dilated. Severely decreased systolic function. The ejection fraction is estimated at 10-15%.
Normal right ventricular size and function. ICD wire seen in right ventricle.
Pacemaker wires present in the right atrial cavity.
Structurally normal mitral valve without significant stenosis. Mild to moderate mitral regurgitation.
Structurally normal tricuspid valve without significant stenosis. Moderate to severe tricuspid regurgitation.
--- NOTE | 2024-11-13 07:45 | PTCARENOTE ---
Assumed care of patient. Pt rec'd intubated. Pupils 2/nonreactive. Unrestrained. Does not make any purposeful movements. No gag or corneal reflex. Significant myoclonic jerking. S1 S2 reg and distant w/ AV pacing on monitor. Weak PP. Trace
generalized edema. Right leg w/ SCD. #7.5 ETT 25cm left side of mouth. Vent settings: 26/500/+5/40%...sats 100%. Lungs diminished w/ coarse scattered rhonchi throughout R>L. Abdomen obese...+BS and +flatus. Left nare [place] @ 71cm to LIWS.
Asencio draining jeremías urine. Asencio removed due to latex allergy and #25 condom cath short applied. Skin WNL. Right radial holly...flushed and zeroed. Left lopez IO noted. 18P LAC w/ hep and lido gtt infusing...see interventions. 20P RAC w/
sodium bicarb gtt infusing. RH 20P w/ amiodarone gtt infusing. On cooling blanket...see intervention. VS documented. Will continue to monitor closely.
[2024-11-13] MEDS: MIRALAX 17 GRAMS TUBE (08:04)
--- NOTE | 2024-11-13 08:45 | PTCARENOTE ---
at bedside discussing plan of care w/ family. Versed gtt ordered. made aware of sz % on ceribell.
[2024-11-13] MEDS: VERSED 50 IV ×2 (09:34→17:07)
[2024-11-13 09:41] LABS: APTT 82.2 Sec (23.4-35.0)
[2024-11-13] MEDS: VERSED 4 MG IV (09:53)
[2024-11-13 09:57] VITALS: BMI 32.5
--- NOTE | 2024-11-13 10:00 | PTCARENOTE ---
Around 0945...Versed 4mg x 1 given and gtt initiated @ 5mg/hr. Seizure activity @ 0% on ceribell after versed administration. Will continue to monitor.
--- NOTE | 2024-11-13 10:16 | W.PN.CARDCBS ---
Today's Communication / Plan
-
Patient with myoclonic twitching and likely severe anoxic cephalopathy
Continue IV amiodarone and IV lidocaine as VT has improved significantly
If patient has meaningful neurologic recovery might consider ischemic evaluation but likely needs end-of-life discussion
Impression / Plan
-
Primary district court reporter: Dr. Cardona ([place])
Impression:
Status post cardiac arrest with ventricular tachycardia and likely severe anoxic encephalopathy
Ventricular tachycardia
Ischemic cardiomyopathy
Acute on chronic systolic CHF
Multivessel CAD status post CABG 2016 -at [facility]
Staph aureus bacteremia 2022 with associated VT storm
Hypertension
Dyslipidemia
Alcohol use
PAF
Sepsis
BSM BIVICD
Thrombocytopenia, platelets 63 K on December 21
Prior cardiac history during 2022 admission
[employer]: LEATHER SPLITTER-D, implanted May 2017
VT zone 170 bpm, monitor only
VF zone greater than 200 bpm ATP followed by 41 J, 41 J, 41 J x 6
Programmed DDD, lower rate limit 60 ppm, upper tracking rate 130 ppm
Catheterization November 2016: Normal left main, sequential 80 and 95% mid LAD 100% after second diagonal, fill left to left and right to left collaterals, nondominant circumflex OM1 80% proximal, OM 2 95% proximal, distal circumflex 100%, RCA 60%
mid, 50% distal, 90% distal occlusion posterolateral, 70% proximal PDA, LV gram, cardiac index 1.7, pulmonary capillary wedge 38
Echo November 2016: EF 5 to 10%, mild to moderate MR, mild TR, pulmonary artery systolic pressure 35-40 mmHg
TTE 12/23/22: EF 5 to 10%, mild MR, mod TR, pulmonary artery systolic pressure 50 mmHg
Plan:
VT has improved dramatically on IV amiodarone and IV lidocaine
Unfortunately patient appears to have suffered severe anoxic encephalopathy with current myoclonic twitching
Will continue IV amiodarone and IV lidocaine
If patient were to have meaningful neurologic recovery could consider ischemic evaluation but that is unlikely
Continue IV heparin for Xarelto with history of A-fib
CHF improved on chest x-ray without intervention
Volume status appears reasonable
Critical care time 40 minutes.
Updated patient's family in detail at bedside and discussed with nursing
Progress Note - Accounting Consultant
Subjective
Date of Service: November 13, 2024
Patient unresponsive with myoclonic twitching
Objective
Labs:
11/13/24 04:27
11/13/24 04:27
Labs
Hgb 9.2 g/dL (13.0-18.0) L 11/13/24 04:27
Hct 33.9 % (39.0-52.0) L 11/13/24 04:27
Plt Count 195 10^3/uL (130-400) D 11/13/24 04:27
APTT 82.2 Sec (23.4-35.0) H 11/13/24 09:11
Sodium 132 mmol/L (135-145) L 11/13/24 04:27
Potassium 3.5 mmol/L (3.5-5.1) D 11/13/24 04:27
BUN 22 mg/dl (9-20) H 11/13/24 04:27
Creatinine 2.3 mg/dL (0.7-1.3) H 11/13/24 04:27
Glucose 203 mg/dl (70-99) H 11/13/24 04:27
Troponins
11/12/24 11/12/24 11/13/24
16:26 23:17 04:27
Troponin I 0.079 H* 12.800 H* D 9.310 H* D
Vital Signs and I&O:
Vital Signs
Temp Pulse Resp BP Pulse Ox
98.8 F 90 26 122/86 99
11/13/24 09:00 11/13/24 10:00 11/13/24 10:00 11/12/24 19:15 11/13/24 10:00
Vital Signs
Temp Pulse Resp BP Pulse Ox
98.8 F 90 26 122/86 99
11/13/24 09:00 11/13/24 10:00 11/13/24 10:00 11/12/24 19:15 11/13/24 10:00
Intake & Output
11/11/24 11/12/24 11/13/24 11/14/24
06:59 06:59 06:59 06:59
Intake Total 1499.0 / 1622.8 430.2 / 430.2
Output Total 340 / 365 50 / 50
Balance 1159.0 / 1257.8 380.2 / 380.2
Physical Exam
Physical Exam
General: Unresponsive with myoclonic twitching
Neck: Supple, no JVD, HJR, carotids +2 B/L, no bruits bilaterally.
Heart: Non displaced PMI, RRR, no murmurs, No S3, S4, no rubs.
Lungs: Scattered rhonchi
Abdomen: Normal bowel sounds, soft, non-tender, non-distended.
Extremities: No clubbing, cyanosis or edema bilaterally.
Neuro: Unresponsive with myoclonic twitching
--- NOTE | 2024-11-13 11:30 | PTCARENOTE ---
at bedside...fully updated family.
[2024-11-13] MEDS: NOVOLOG FLEXPEN-MODERATE RESISTANCE SC (12:00)
[2024-11-13 12:10] LABS: Glucose - Point of Care 102 mg/dl (70-99)
--- NOTE | 2024-11-13 12:13 | CON.NEURO ---
Neuro Assessment/Plan
Assessment
Anoxic myoclonus
Ceribell EEG showing burst suppression, with burst correlating to the clinical myoclonus
unfortunately with this clinical situation and EEG there is no possibility for any meaningful neuro recovery. range of possibilities would be brain , awake/unresponsive or minimally responsive
this was discussed extensively with patient's family and questions answered, including reviewing eeg tracings with them at their request
40' crit care time including examining patient, reviewing eeg tracing at bedside, and extensive family discussion
Consultation
Order
Date of Consultation: 11/13/24
Requesting Provider:
Reason for Consult:
Subjective/Objective
Subjective Data
Date of Service: November 13, 2024
Objective Data
Vital Signs
Temp Pulse Resp BP Pulse Ox
36.9 C 90 26 122/86 100
11/13/24 11:00 11/13/24 11:15 11/13/24 11:15 11/12/24 19:15 11/13/24 11:15
Lab Results
11/13/24 04:27
11/13/24 04:27
APTT 82.2 Sec (23.4-35.0) H 11/13/24 09:11
Sodium 132 mmol/L (135-145) L 11/13/24 04:27
Potassium 3.5 mmol/L (3.5-5.1) D 11/13/24 04:27
BUN 22 mg/dl (9-20) H 11/13/24 04:27
Glucose 203 mg/dl (70-99) H 11/13/24 04:27
Calcium 7.4 mg/dl (8.4-10.2) L 11/13/24 04:27
LDL Cholesterol, Calc 50 mg/dl 11/13/24 04:27
Vitamin B12 924 pg/ml (239-931) 11/13/24 04:27
Patient Allergies
adhesive tape Allergy (Verified 01/13/23 12:37)
Rash
latex Allergy (Verified 11/12/24 22:04)
Rash
Physical Exam
-
no response to to noxious stim x4 extremities
no cough
myoclonic jerks affecting face or entire body;
Medications
-
Active Medications
Generic Name Dose Route Start Last Admin
Trade Name Freq PRN Reason Stop Dose Admin
Acetaminophen 650 mg 11/12/24 18:45
Acetaminophen 650 Mg Rectal Suppository RECTAL 12/10/24 18:44
Q4HPRN PRN
mild pain/WATERMAN/temp> 100.4F
Bisacodyl 10 mg 11/12/24 18:45
Bisacodyl 10 Mg Rectal Suppository RECTAL 12/10/24 18:44
[id number] PRN
constipation
Fentanyl Citrate 50 mcg 11/12/24 19:34 11/13/24 05:19
Fentanyl (50 Mcg/Ml) 100 Mcg/2 Ml Ampul IV 11/26/24 19:33 50 mcg
[id number] PRN Administration
see protocol
Protocol
Heparin Sodium 25,000 units in 250 mls @ 0 mls/hr 11/12/24 18:15 11/12/24 19:56
Heparin 61444 Units/250 Ml IV 250 mls
PER PROTOCOL JUAN MIGUEL Administration
Protocol
Per Protocol
Lidocaine HCl/Dextrose 2,000 mg in 250 mls @ 7.5 mls/hr 11/12/24 19:00
Xylocaine IV
ORDERED RATE JUAN MIGUEL
1 MG/MIN
Amiodarone HCl 900 mg/ 518 mls @ 0 mls/hr 11/12/24 19:00 11/12/24 19:30
Dextrose/Water IV 518 mls
PER PROTOCOL JUAN MIGUEL Administration
Protocol
Per Protocol
Acetaminophen 1,000 mg in 100 mls @ 400 mls/hr 11/12/24 22:45 11/13/24 10:23
Ofirmev IV 11/13/24 16:59 100 mls
Q6H JUAN MIGUEL Administration
Protocol
Midazolam HCl 50 mg in 50 mls @ 5 mls/hr 11/13/24 09:00 11/13/24 09:34
Versed IV 50 mls
ORDERED RATE JUAN MIGUEL Administration
Insulin Aspart 0 units 11/13/24 06:00 11/13/24 06:29
Insulin Aspart Moderate Resistance 300 Units/3 Ml Pen.Injctr SC 12/11/24 05:59 1 units
Q6 JUAN MIGUEL Administration
Protocol
Polyethylene Glycol 17 grams 11/12/24 18:45
Polyethylene Glycol Powder 17 Grams Packet PO 12/10/24 18:44
DAILYPRN PRN
constipation
Polyethylene Glycol 17 grams 11/13/24 08:00 11/13/24 08:04
Polyethylene Glycol Powder 17 Grams Packet TUBE 12/11/24 07:59 17 grams
DAILY JUAN MIGUEL Administration
Senna/Docusate Sodium 1 tablet 11/12/24 18:45
Docusate W/Senna (Luana-Colace) Tablet PO 12/10/24 18:44
BIDPRN PRN
constipation
Sodium Chloride 0 flush 11/12/24 19:00
Sodium Chloride 0.9% (Flush) Syringe IV 12/10/24 18:59
PER PROTOCOL JUAN MIGUEL
Home Medications
�Medication �Instructions �Recorded
atorvastatin 80 mg tablet 80 mg PO QPM High Cholesterol 12/20/22
dapagliflozin propanediol 10 mg 10 mg PO DAILY Heart Failure 12/20/22
tablet (Farxiga)
eplerenone 25 mg tablet 25 mg PO QPM Heart Failure 12/20/22
ferrous sulfate 325 mg (65 mg 325 mg PO DAILY Supplement 12/20/22
iron) tablet
rivaroxaban 20 mg tablet (Xarelto) 20 mg PO QPM Blood Clot 12/20/22
Prevention/Tx
vitamin E 268 mg (400 unit) capsule 268 mg PO DAILY Supplement 12/20/22
loratadine 10 mg tablet (Claritin) 10 mg PO DAILY Allergies 12/21/22
bumetanide 1 mg tablet 0.5 mg PO DAILY Heart Failure 11/12/24
levothyroxine 137 mcg tablet 137 mcg PO DAILY Thyroid 11/12/24
(Synthroid)
metoprolol succinate 50 mg 50 mg PO DAILY Heart Failure 11/12/24
tablet,extended release 24 hr
(Toprol XL)
potassium chloride 20 mEq 20 meq PO Q48H Electrolyte 11/12/24
tablet,extended release(part/cryst) Repletion
--- NOTE | 2024-11-13 12:15 | PTCARENOTE ---
Minimal myoclonic jerking noted. Remains intubated and on versed gtt @ 5mg/hr. No physical assessment changes. Will d/c ceribell per neurology. VS documented. Will continue to monitor closely.
--- NOTE | 2024-11-13 12:59 | W.PN.HOSP.TC ---
Today's Communication/Plan
-
continue sedation and mechanical ventelation.
Assessment / Plan
Assessment / Plan
Impression:
Patient admitted to the ICU after V. tach cardiac arrest status post amiodarone and lidocaine drip, patient currently intubated, noted to have anoxic myoclonus, seen by neurology, very poor prognosis, discussed with family at bedside.
Assessment/plan:
Status post V. tach cardiac
Currently in the ICU.
Cardiology consulted.
Sedated/intubated
Anoxic myoclonus.
Appreciate neurology input.
Very poor prognosis
Acute hypoxic respiratory failure with pulmonary edema
Acute on chronic heart failure
Continue current ventilation
Discussed with family and updated poor prognosis
Shock liver.
Lactic acidosis.
Renal failure
Paroxysmal A-fib
CODE STATUS: Full code (discussed with brother Chriss regarding poor prognosis), patient sister coming today and will continue to discuss with the family and offer support
DVT prophylaxis: Heparin drip
Total time spent on today's encounter was 75 minutes which included time spent in counseling the patient/family regarding diagnosis and treatment plan as listed above, goals of care, and symptom management. Case was discussed with nursing staff,
specialists, and care coordinators/case management. All labs and imaging personally reviewed by me. Remainder the time spent in detailed review of previous records, lab data, imaging, and other medical provider documentation.
Anticipated Discharge: > 48 hours
Subjective/Interval History
-
Date of Service: November 13, 2024
Patient seen in the ICU, sedated, intubated, discussed with family at bedside.
Objective Data
-
Labs:
Laboratory Results
11/13/24 11/13/24 11/13/24
02:01 04:27 09:11
WBC 12.1 H
Hgb 9.2 L
Hct 33.9 L
Plt Count 195 D
APTT 173.1 H* 82.2 H
HCO3 15.6 L*
Sodium 132 L
Potassium 3.5 D
Chloride 102
Carbon Dioxide 17 L
BUN 22 H
Creatinine 2.3 H
Glucose 203 H
Calcium 7.4 L
Total Bilirubin 1.9 H
AST 351 H
ALT 343 H
Alkaline Phosphatase 72
11/13/24
16:00
WBC
Hgb
Hct
Plt Count
APTT Pending
HCO3
Sodium
Potassium
Chloride
Carbon Dioxide
BUN
Creatinine
Glucose
Calcium
Total Bilirubin
AST
ALT
Alkaline Phosphatase
Vital Signs:
Vital Signs
Temp Pulse Resp BP Pulse Ox
98.1 F 90 26 122/86 100
11/13/24 12:00 11/13/24 11:15 11/13/24 11:15 11/12/24 19:15 11/13/24 12:00
I&O
11/12/24 11/13/24 11/14/24
06:59 06:59 06:59
Intake Total 1499.0 / 1622.8 637.8 / 637.8
Output Total 340 / 365 50 / 50
Balance 1159.0 / 1257.8 587.8 / 587.8
Physical Exam
-
General: Intubated
HEENT: Atraumatic
Respiratory: Rales and Rhonchi
Cardiac: Regular Rhythm and S1/S2
Musculoskeletal: No Clubbing and No Cyanosis
Skin: Warm
Neuro: Sedated
Psych: Other (Sedated)
--- NOTE | 2024-11-13 13:20 | CHAP ---
Jamin was non-responsive, with family and friends visiting in turns. Spent time at length with brother Chriss, his girlfriend Sarai, his son Paul, and caring friends. Chriss shared background about his brother, who is a kind person with many
friends. joined Chriss at the bedside to offer prayers commending Joseph to God, giving thanks for his life and love, and asking peace for all. Emotional and spiritual support provided, along with a prayer blanket and assurance of our
on-going availability.
[2024-11-13] MEDS: CORDARONE 518 MG IV (14:01)
--- NOTE | 2024-11-13 14:47 | CM ---
employee services manager reviewed patient's chart and spoke with nursing and family at bedside, patient is currently intubated. Patient lives with his sister in a 2 story home with no steps to enter, patient was independent with adl's and ambulation, no dme,
patient drives. Needs follow up, check on prognosis.
PCP: Dr Nixon
Pharmacy: [facility] in [place].
[2024-11-13 15:42] LABS: APTT 76.1 Sec (23.4-35.0)
--- NOTE | 2024-11-13 16:00 | PTCARENOTE ---
No major physical changes. Remains on lidocaine, amiod, versed, and heparin gtts. VS documented. Will continue to monitor closely.
--- NOTE | 2024-11-13 16:31 | EEGC.RPT ---
Continuous EEG Report
Recording
Start Date of Data Reviewed: 11/12/24
Start Time of Data Reviewed: 21:03
End Date of Data Reviewed: 11/13/24
End Time of Data Reviewed: 12:23
Type of EEG: Continuous
Done with Video Recording: No
Report
Clinical Background:�Cardiac arrest, anoxic myoclonus
Introduction: An emergent EEG was done using Ceribell device in the ICU. Total recording time 12 hrs 8 mins.
Background: There is burst suppression. The bursts last 1-5 seconds and at times, comprise ~25% of the recording. No normal rhythms were seen.
Impression: Burst suppression. 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
--- NOTE | 2024-11-13 17:00 | PTCARENOTE ---
Pt bladder scanned for 455mls and straight cath'd for 450mls of jeremías urine. Haseeb ESPINOZA updated.
[2024-11-13] MEDS: OFIRMEV IV (17:08)
--- NOTE | 2024-11-13 17:15 | PTCARENOTE ---
Report called to [facility] at [facility]. Pt to transfer to Room 242. [facility] transport updated. Will be here to transfer pt shortly.
--- NOTE | 2024-11-13 17:30 | PTCARENOTE ---
Full report given to [facility] transfer at bedside. All paperwork provided.
--- NOTE | 2024-11-13 18:15 | RESPNOTE ---
[facility] transport team at bedside to transport patient to [facility]. Placed on transport vent settings AC 26/500/40%/+5
--- NOTE | 2024-11-14 09:20 | W.DCSUMMARY ---
Discharge Summary
Discharge Data
Date of Admission: 11/12/24
Date of Discharge: 11/13/24
Total time spent discharging patient (in min): 40
-
Pending Results: No
Hospital Course
Hospital course
Patient admitted to the ICU after V. tach cardiac arrest status post amiodarone and lidocaine drip, patient currently intubated, noted to have anoxic myoclonus, seen by neurology, very poor prognosis, discussed with family at bedside.
Transfer to [facility] was initiated when the patient was in the ER,[facility] called the ICU saying that they have an accepting physician and a bed.
Patient is critically ill and with poor prognosis with concern of anoxic myoclonus, ICU attending discussed with family and they agreed to continue with the transfer to [facility].
Total time spent on today's encounter was 40 minutes which included time spent in counseling the patient/family regarding diagnosis and treatment plan as listed above, goals of care, and symptom management. Case was discussed with nursing staff,
specialists, and care coordinators/case management. All labs and imaging personally reviewed by me. Remainder the time spent in detailed review of previous records, lab data, imaging, and other medical provider documentation.
Anticipated Discharge: Today
Discharge Plan
-
Patient Disposition: Acute Care Hospital
Discharge Date and Time
Discharge Date/Time: 11/13/24 19:04
Print Language: MOSOTHO
== END 2024-11-13 19:04 | disposition short-term general hospital (02) | DRG 91 ==
LOC: ICU 18:13
PROVIDERS: Internal Medicine Cardiovascular Disease; Nurse Practitioner Primary Care; Registered Nurse; ADMITTING PHYSICIAN Internal Medicine; ATTENDING PHYSICIAN General Practice; CONSULT PHYSICIAN Internal Medicine; CONSULT PHYSICIAN Internal Medicine Cardiovascular Disease; CONSULT PHYSICIAN Psychiatry & Neurology Clinical Neurophysiology; EMERGENCY PHYSICIAN Emergency Medicine; FAMILY PHYSICIAN Family Medicine; REFERRING PHYSICIAN Internal Medicine Cardiovascular Disease
PROC: 0BH17EZ Insertion of Endotracheal Airway into Trachea, Via Natural or Artificial Opening (ICD-10-PCS; 2024-11-12)
PROC: 4B02XTZ Measurement of Cardiac Defibrillator, External Approach (ICD-10-PCS; 2024-11-12)
PROC: 5A1935Z Respiratory Ventilation, Less than 24 Consecutive Hours (ICD-10-PCS; 2024-11-12)
DX: G93.1 Anoxic brain damage, not elsewhere classified (principal); I46.2 Cardiac arrest due to underlying cardiac condition; I50.23 Acute on chronic systolic (congestive) heart failure; J96.01 Acute respiratory failure with hypoxia; R57.0 Cardiogenic shock; K72.01 Acute and subacute hepatic failure with coma; I47.20 Ventricular tachycardia, unspecified; I42.8 Other cardiomyopathies; E87.20 Acidosis, unspecified; N17.9 Acute kidney failure, unspecified; E87.1 Hypo-osmolality and hyponatremia; I48.0 Paroxysmal atrial fibrillation; R19.7 Diarrhea, unspecified; F41.9 Anxiety disorder, unspecified; G47.33 Obstructive sleep apnea (adult) (pediatric); I11.0 Hypertensive heart disease with heart failure; I25.10 Atherosclerotic heart disease of native coronary artery without angina pectoris; I44.7 Left bundle-branch block, unspecified; F10.10 Alcohol abuse, uncomplicated; D64.9 Anemia, unspecified; E66.9 Obesity, unspecified; I27.20 Pulmonary hypertension, unspecified; I08.1 Rheumatic disorders of both mitral and tricuspid valves; I25.5 Ischemic cardiomyopathy; E03.9 Hypothyroidism, unspecified; E78.00 Pure hypercholesterolemia, unspecified; G25.3 Myoclonus; I70.8 Atherosclerosis of other arteries; I25.2 Old myocardial infarction; Z87.891 Personal history of nicotine dependence; Z95.1 Presence of aortocoronary bypass graft; Z91.040 Latex allergy status; Z91.048 Other nonmedicinal substance allergy status; Z79.84 Long term (current) use of oral hypoglycemic drugs; Z79.890 Hormone replacement therapy; Z79.01 Long term (current) use of anticoagulants; Z68.32 Body mass index [BMI] 32.0-32.9, adult; Z82.49 Family history of ischemic heart disease and other diseases of the circulatory system; Z86.79 Personal history of other diseases of the circulatory system; Z80.1 Family history of malignant neoplasm of trachea, bronchus and lung
CPT/HCPCS: 31500; 70450; 71045; 80048; 80053; 80061; 82607; 82728; 82805; 82962; 83540; 83550; 83605; 83735; 84443; 84484; 85025; 85027; 85730; 93005; 94002; 94003; 95708; 96374; 96375; 99291; J2002; J2250